=== PATIENT | male | born 1980 | race African-American/Black ===

== ENCOUNTER 2019-01-21 17:53 | Emergency (ER) ==
[~2019-01-21] VITALS: Ht 172.7 cm; Wt 68.0 kg
[2019-01-21] MEDS ORDERED: KETOROLAC 15MG/ML VIAL IV ONE (18:45)
[2019-01-21 19:25] LABS: BASOPHILS % 0.6 % (0.0-2.0); EOSINOPHILS % 0.3 % (0.0-5.0); HEMATOCRIT. 39.9 % (42.0-52.0); HEMOGLOBIN. 13.7 g/dL (14.0-18.0); LYMPHOCYTES % 19.6 % (20.0-50.0); MEAN CORPUSCULAR HEMOGLOBIN 22.3 pg (28.0-32.0); MEAN CORPUSCULAR VOLUME 64.9 fL (80.0-94.0); MEAN PLATELET VOLUME 10.5 fl (7.4-10.4); MONOCYTES % 7.6 % (2.0-8.0); NEUTROPHILS % 71.9 % (40.0-76.0); PLATELET 206 x1000/uL (130-400); RED BLOOD CELL COUNT 6.15 mill/uL (4.7-6.1); RED CELL DISTRIBUTION WIDTH 16.7 % (11.6-14.6)
[2019-01-21 19:29] LABS: CHLORIDE 105 mEq/L (98-107)
[2019-01-21 19:59] LABS: PLATELET ESTIMATE NORMAL
[2019-01-21 22:34] VITALS: BP 114/68
== END 2019-01-22 09:00 | disposition home or self-care (01) ==
LOC: ER 17:53
DX: R07.89 Other chest pain (principal); R42 Dizziness and giddiness; M54.30 Sciatica, unspecified side
CPT/HCPCS: 36415; 71045; 80053; 83735; 84484; 85025; 93005; 96374; 99284; J1885